=== PATIENT | male | born 1990 | race Caucasian/White ===

== ENCOUNTER 2016-09-21 16:00 | Emergency (ER) | payer MEDICARE, MEDICAID ==
[~2016-09-21] VITALS: Ht 177.8 cm; Wt 83.5 kg
[~2016-09-21 16:00] MED LIST: HYDR-548 PO
--- NOTE | 2016-09-21 16:31 | NUR ---
Patient discharged to home in stable conditon. Written and verbal after care instructions given to patient. Patient verbalizes understanding of instructions. Patient left ER with brisk steady gait.
== END 2016-09-21 16:34 | disposition home or self-care (01) ==
LOC: ER 16:00
DX: M54.9 Dorsalgia, unspecified (principal); F17.200 Nicotine dependence, unspecified, uncomplicated; Z88.6 Allergy status to analgesic agent; Z88.8 Allergy status to other drugs, medicaments and biological substances; V43.52XA Car driver injured in collision with other type car in traffic accident, initial encounter; W22.10XA Striking against or struck by unspecified automobile airbag, initial encounter; Y93.89 Activity, other specified; Y99.8 Other external cause status; Y92.89 Other specified places as the place of occurrence of the external cause
CPT/HCPCS: A4663

== ENCOUNTER 2016-12-30 17:24 | Emergency (ER) | payer MEDICARE, MEDICAID ==
[~2016-12-30] VITALS: Ht 180.3 cm; Wt 79.4 kg
--- NOTE | 2016-12-30 18:55 | NUR ---
Patient discharged to home in stable conditon. Written and verbal after care instructions given to patient. Patient verbalizes understanding of instructions.
== END 2016-12-30 18:57 | disposition home or self-care (01) ==
LOC: ER 17:24
DX: F20.9 Schizophrenia, unspecified (principal); F31.9 Bipolar disorder, unspecified; F41.9 Anxiety disorder, unspecified; Z88.5 Allergy status to narcotic agent
CPT/HCPCS: 99284; A4663

== ENCOUNTER 2017-03-01 01:46 | Emergency (ER) | payer MEDICARE, MEDICAID ==
[~2017-03-01] VITALS: Ht 180.3 cm; Wt 77.1 kg
[2017-03-01 02:40] LABS: BASOPHILS # (AUTO) 0.2 K/uL (0.0-8.0); BASOPHILS % (AUTO) 1.7 % (0.0-2.0); EOSINOPHILS # (AUTO) 0.4 K/uL (0.0-0.7); HEMATOCRIT 40.3 % (40-50); HEMOGLOBIN 13.9 G/DL (14.0-18.0); LYMPHOCYTES # (AUTO) 2.6 K/UL (0.8-4.8); LYMPHOCYTES % (AUTO) 24.9 % (20.5-51.5); MEAN CORPUSCULAR HEMOGLOBIN 30.5 UUG (27.0-31.0); MEAN CORPUSCULAR HGB CONC 35 g/dL (32.0-37.0); MEAN CORPUSCULAR VOLUME 88.7 FL (82.0-92.0); MONOCYTES # (AUTO) 0.8 K/UL (0.1-1.30); MONOCYTES % (AUTO) 7.9 % (0.0-11.0); NEUTROPHILS # (AUTO) 6.6 K/UL (1.8-8.9); NEUTROPHILS % (AUTO) 61.5 % (38.5-71.5); PLATELET COUNT (AUTO) 275 K/UL (150-450); RED BLOOD CELL COUNT(AUTO) 4.55 MIL/UL (4.7-6.1); WHITE BLOOD COUNT (AUTO) 10.6 K/UL (4.0-11.2)
[2017-03-01 02:55] LABS: ALANINE AMINOTRANSFERASE 34 U/L (16-63); ALKALINE PHOSPHATASE 137 U/L (50-136); ASPARTATE AMINOTRANSFERASE 20 U/L (15-37); BILIRUBIN,DIRECT < 0.1 mg/dL (0.0-0.2); BILIRUBIN,TOTAL 0.3 mg/dL (0.2-1.0); CARBON DIOXIDE 26 mmol/L (21-32); CHLORIDE 105 mmol/L (98-107); CREATININE 1.3 mg/dL (0.6-1.3); GLUCOSE 106 mg/dL (74-106); LIPASE 214 U/L (73-393); POTASSIUM 3.8 mmol/L (3.5-5.1); UREA NITROGEN, BLOOD 23 mg/dL (7-18)
--- NOTE | 2017-03-01 03:18 | NUR ---
Patient out of unit for ct scan via [place]
[2017-03-01] MEDS ORDERED: IV NORMAL SALINE 250 ML IV ONE (03:24)
[2017-03-01] MEDS ORDERED: IOHEXOL 300MG/ML 100 ML INFUS..BTL ONE ×2 (03:24→04:02)
--- NOTE | 2017-03-01 03:30 | NUR ---
patient back from ct scan with no distress noted
[2017-03-01] MEDS ORDERED: KETOROLAC TROMETHAMINE 30 MG INJ IVP ONE (04:30)
--- NOTE | 2017-03-01 04:34 | NUR ---
Patient refused to have toradol. states "I just want my Rx and go home."
--- NOTE | 2017-03-01 04:39 | NUR ---
IV removed. Catheter intact and site benign. Pressure and 4x4 gauze applied to site. No bleeding noted.
[2017-03-01] MEDS ORDERED: KETOROLAC TROMETHAMINE 30 MG INJ ONE (04:46)
[2017-03-01 04:49] VITALS: BP 128/74
--- NOTE | 2017-03-01 04:49 | NUR ---
Patient discharged to home in stable conditon. Written and verbal after care instructions given. Patient verbalizes understanding of instructions. Walked out of ER with no distress noted
== END 2017-03-01 04:50 | disposition home or self-care (01) ==
LOC: ER 01:49
DX: R10.9 Unspecified abdominal pain (principal); R07.89 Other chest pain; F17.200 Nicotine dependence, unspecified, uncomplicated; Z88.6 Allergy status to analgesic agent; F20.9 Schizophrenia, unspecified; Z88.8 Allergy status to other drugs, medicaments and biological substances
CPT/HCPCS: 36415; 71260; 74177; 80048; 80076; 83690; 85025; 85730; 99285; A4663; J1885; J7050; Q9967 ×2